=== PATIENT | female | born 1965 | race African-American/Black ===

== ENCOUNTER 2017-01-03 23:22 | Emergency (ER) | payer OTHER ==
[~2017-01-03] VITALS: Ht 172.7 cm; Wt 59.0 kg
[~2017-01-03 23:22] MED LIST: AMBIEN 5 MG TABL5 M1 PO; ANTIVERT25 MG PO; BACLOFEN20 MG PO; CARISOPRODOL 3350 MG PO; DULERA 200 MCG/13 GM; DURAGESIC1 EAC2; METHADONE HCL 110 M1 PO; MIRALAX17 GM; OXYCODONE HCL 55 MG PO; PERCOCET 5-3251 EACH PO; PHENERGAN 25 MG25 M1; SENOKOT-S1 TA1 PO; TOPAMAX50 MG; TOPAMAX50 MG PO; ULTRAM 50MG TAB50 MG PO; VALIUM5 MG PO; VENTOLIN HFA 1818 GM; XANAX 0.5 MG0.5 MG PO; ZOFRAN ODT4 M1
[2017-01-04] MEDS ORDERED: DIFLUCAN150 MG PO (00:47)
== END 2017-01-04 01:06 | disposition home or self-care (01) ==
LOC: ER 23:22
DX: B35.8 Other dermatophytoses (principal); Z88.0 Allergy status to penicillin

== ENCOUNTER 2017-04-23 20:47 | Emergency (ER) | payer OTHER ==
[~2017-04-23] VITALS: Ht 172.7 cm; Wt 62.6 kg
--- NOTE | ~2017-04-23 | EKG ---
[address] [address] [facility] [place] [address] ELECTROCARDIOGRAM REPORT Name: [place] ROMESMITHA [id number] Admission: 04/23/17 Attend Phys: Discharge: 04/24/17 Date of : 67 Report #: [id number] THIS REPORT FOR: //name// [facility] ED Test Date: 2017-04-23 Test Time: 21:34:54 Pat Name: TESFAYE STARK Department: Room: Gender: F Entry Rep: GAIL : 1965 Requested By: John Marshall Order Number: [id number] MD: Jake Pineda Measurements Intervals [place] Rate: 89 P: 74 [place]: 166 QRS: 55 QRSD: 98 T: 81 QT: 371 QTc: 452 Interpretive Statements Sinus rhythm Cannot rule out Brudaga's syndrome Baseline wander in lead(s) V2 No previous ECG available for comparison Electronically Signed On 04-24-2017 9:05:30 WATER VESSEL CAPTAIN by Jake Pineda [email or web address] <ELECTRONICALLY SIGNED> By: Jake Pineda MD, [facility] 04/24/17 0905 D: [id number] Jake Pineda MD, FACC /EPI
[~2017-04-23 20:47] MED LIST changes: +ACETAMINOPHEN-120 ML PO; +CEPHALEXIN 250250 MG; +COMPAZINE5 MG PO; +DIFLUCAN150 MG PO; +FENTANYL PATCH75 MCG TP; +FIORICET 50-321 EACH PO; +FLEXERIL PO; +LORTAB 5 MG/5001 TA1 PO; +NEURONTIN 300300 M1; +NEURONTIN 300300 M1 PO; +NORCO 5-325 TA1 EACH PO; +OXYCONTIN15 MG PO; +PERCOCET 10-321 EACH PO; +PERCOCET 10-651 EACH PO; +PHENERGAN 25 MG25 M1 PO; +PRILOSEC40 MG PO; +TOPAMAX200 MG PO; +ZOFRAN ODT4 MG PO; +ZOFRAN4 MG PO
[2017-04-23 22:46] LABS: HEMATOCRIT 36.8 % (37.0-47.0); HEMOGLOBIN 12.3 gm/dL (12.0-15.0); MCH 31.1 pg (26.0-34.0); MCHC 33.4 g/dL (28.0-37.0); MCV 93.2 fL (80.0-100.0); RBC 3.95 mil/uL (4.20-5.00); RDW 14.1 % (10.5-14.5); WBC 4.8 thou/uL (4.0-11.0)
[2017-04-23 22:54] LABS: ANION GAP 11 mmol/L (7-16); BUN 10 mg/dL (7-18); CALCIUM 8.2 mg/dL (8.5-10.1); CHLORIDE 103 mmol/L (98-107); CO2 21 mmol/L (21-32); CREATININE 1.2 mg/dL (0.6-1.0); GLUCOSE 105 mg/dL (74-106); POTASSIUM 3.9 mmol/L (3.5-5.1); SODIUM 135 mmol/L (136-145)
[2017-04-23 23:03] LABS: TROPONIN-I < 0.04 ng/mL (<0.06)
[2017-04-23 23:04] LABS: URINE BILIRUBIN NEGATIVE (Negative); URINE BLOOD NEGATIVE (Negative); URINE CLARITY CLEAR; URINE COLOR YELLOW; URINE GLUCOSE-RANDOM* NEGATIVE (Negative); URINE KETONES NEGATIVE (Negative); URINE LEUKOCYTES-REFLEX NEGATIVE (Negative); URINE NITRITE-REFLEX NEGATIVE (Negative); URINE PROTEIN (DIPSTICK) TRACE (Negative); URINE UROBILINOGEN 0.2 E.U./dl (0.2-1.0)
[2017-04-24] MEDS ORDERED: PREDNISONE 20 M20 MG PO (00:58)
[2017-04-24] MEDS ORDERED: PROMETHAZINE/C118 ML PO (00:58)
[2017-04-24] MEDS ORDERED: LEVSIN0.125 MG PO (00:58)
[2017-04-24] MEDS ORDERED: VENTOLIN HFA 1818 GM INH (00:58)
[2017-04-24] MEDS ORDERED: MIRALAX17 GM PO (00:58)
[2017-04-24 01:14] VITALS: BP 145/98
[2017-07-09] MEDS ORDERED: CLOTRIMAZOLE 1%15 G1 TOP (23:34)
[2017-07-09] MEDS ORDERED: BACTRIM DS TAB1 EACH PO (23:48)
[2017-07-09] MEDS ORDERED: ACYCLOVIR 400400 MG PO (23:48)
[2017-07-09] MEDS ORDERED: ADDERALL 30 MG30 MG PO (23:49)
[2017-07-09] MEDS ORDERED: ROXICODONE30 M1 PO (23:51)
[2017-07-09] MEDS ORDERED: NARCAN4 MG NS (23:51)
[2017-07-09] MEDS ORDERED: HYDROXYZINE HCL25 M1 PO (23:51)
[2017-07-09] MEDS ORDERED: AMPHETAMINE SAL30 MG PO (23:52)
[2017-08-11] MEDS ORDERED: ADDERALL 30 MG30 MG PO (04:02)
[2017-08-11] MEDS ORDERED: TOPAMAX 100 MG100 MG PO (04:02)
== END 2017-04-24 01:14 | disposition home or self-care (01) ==
LOC: ER 20:47
PROVIDERS: Emergency Medicine; Physician Assistant
DX: N17.9 Acute kidney failure, unspecified (principal); J20.8 Acute bronchitis due to other specified organisms; K59.00 Constipation, unspecified

== ENCOUNTER → 2017-05-12 | Outpatient (CLI) | payer OTHER ==
[~2017-05-12] MED LIST changes: +ACYCLOVIR 400400 MG PO; +ADDERALL 30 MG30 MG PO; +AMPHETAMINE SAL30 MG PO; +BACTRIM DS TAB1 EACH PO; +CLOTRIMAZOLE 1%15 G1 TOP; +HYDROXYZINE HCL25 M1 PO; +LEVSIN0.125 MG PO; +MIRALAX17 GM PO; +NARCAN4 MG NS; +PREDNISONE 20 M20 MG PO; +PROMETHAZINE/C118 ML PO; +ROXICODONE30 M1 PO; +TOPAMAX 100 MG100 MG PO; +VENTOLIN HFA 1818 GM INH
--- NOTE | ~2017-05-12 | 2DMMODE ---
[facility] [address] [place] [address] 2 D/M-MODE ECHOCARDIOGRAM Name: SMITHA ROME Room #: REG [facility]#: [id number] Admission: 05/12/17 Attend Phys: Blaise Guardado Discharge: Date of : 67 Date of Service: 05/12/17 1231 Report #: [id number] THIS REPORT FOR: //name// APPROVED REPORT Study performed: 05/12/2017 10:37:45 EXAM: Comprehensive 2D, Doppler, and color-flow Echocardiogram Patient Location: Out-Patient Status: routine BSA: 1.77 HR: 75 bpm BP: 126/90 mmHg Rhythm: NSR Other Information Study Quality: Good Indications Abnormal ECG 2D Dimensions RVDd: 32.52 mm LVEF(%): 63.00 (>50%) IVSd: 7.77 (7-11mm) LVOT Diam: 20.07 (18-24mm) LVDd: 38.39 mm PWd: 7.99 (7-11mm) LVDs: 25.52 (25-40mm) Aortic Root: 34.09 mm IVC: 18.00 mm Torres's LVEF: 63.00 % Volumes Left Atrial Volume (Systole) Single Plane 4CH: 32.41 mL Aortic Valve AoV Peak Tin.: 1.02 m/s AO Peak Gr.: 4.15 mmHg LVOT Max P.31 mmHg LVOT Max V: 0.76 m/s KARLA Vmax: 2.36 cm2 Mitral Valve E/A Ratio: 1.3 MV Decel. Time: 169.82 ms MV E Max Tin.: 0.84 m/s [facility] [address] [place] [address] 2 D/M-MODE ECHOCARDIOGRAM Name: ROMESMITHA Room #: REG [facility]#: [id number] Admission: 05/12/17 Attend Phys: Blaise Guardado Discharge: Date of : 67 Date of Service: 05/12/17 1231 Report #: [id number] MV A Tin.: 0.67 m/s MV PHT: 49.25 ms IVRT: 69.20 ms Pulmonary Vein P Vein S: 0.36 m/s P Vein A: 0.24 m/s P Vein D: 0.44 m/s P Vein A Dur.: 106.1 msec P Vein S/D Ratio: 0.82 Tricuspid Valve TR Peak Tin.: 2.16 m/s RAP Estimate: 5.00 mmHg TR Peak Gr.: 18.58 mmHg PA Pressure: 24.00 mmHg Left Ventricle The left ventricle is normal size. There is normal left ventricular wall thickness. The left ventricular systolic function is normal. LVEF is 55-60%. Grade II - pseudonormal filling dynamics. Right Ventricle The right ventricle is normal size. The right ventricular systolic function is normal. Atria The left atrium size is normal. The right atrium size is normal. Aortic Valve The aortic valve is normal in structure. Trace aortic regurgitation. There is no aortic valvular stenosis. Mitral Valve The mitral valve is normal in structure. Trace to mild mitral regurgitation. No evidence of mitral valve stenosis. Tricuspid Valve The tricuspid valve is normal in structure. Mild tricuspid regurgitation. Pulmonic Valve Pulmonic valve is not well visualized but appears grossly normal in structure. There is no pulmonic valvular regurgitation. Great Vessels The aortic root is normal in size. IVC is normal in size and collapses >50% with inspiration. [address] [address] 2 D/M-MODE ECHOCARDIOGRAM Name: SMITHA ROME Room #: REG [facility]#: [id number] Admission: 05/12/17 Attend Phys: [facility] Discharge: Date of : 67 Date of Service: 05/12/17 1231 Report #: [id number] Pericardium There is no pericardial effusion. <Conclusion> The left ventricle is normal size. LVEF is 55-60%. The aortic valve is normal in structure. Trace aortic regurgitation. The mitral valve is normal in structure. Trace to mild mitral regurgitation. The tricuspid valve is normal in structure. Mild tricuspid regurgitation. Pulmonic valve is not well visualized but appears grossly normal in structure. There is no pericardial effusion. <ELECTRONICALLY SIGNED> By: Garry Henriquez MD 05/12/17 1231 1231 1231 Garry Henriquez MD /INF
== END ==
LOC: CV 09:36
DX: I08.1 Rheumatic disorders of both mitral and tricuspid valves (principal); R94.31 Abnormal electrocardiogram [ECG] [EKG]

== ENCOUNTER 2018-10-04 12:24 | Emergency (ER) | payer OTHER ==
[~2018-10-04] VITALS: Ht 167.6 cm; Wt 59.0 kg
[2018-10-04 13:40] LABS: ABSOLUTE NEUTROPHILS 1.9 thou/uL (1.4-8.2); BASOPHILS 0.7 % (0.0-2.0); EOSINOPHILS 1.7 % (0.0-3.0); HEMATOCRIT 37.9 % (37.0-47.0); HEMOGLOBIN 12.5 gm/dL (12.0-15.0); LYMPHOCYTES 44.5 % (24.0-44.0); MCH 30.2 pg (26.0-34.0); MCHC 32.8 g/dL (28.0-37.0); MONOCYTES 6.5 % (1.0-8.0); PLATELET COUNT 201 thou/uL (150-400); POLYS 46.6 % (36.0-66.0); RBC 4.12 mil/uL (4.20-5.00); RDW 15.6 % (10.5-14.5); WBC 4.1 thou/uL (4.0-11.0)
[2018-10-04 13:47] LABS: CREATININE 1.3 mg/dL (0.6-1.0); POTASSIUM 3.5 mmol/L (3.5-5.1)
[2018-10-04 14:17] LABS: URINE BLOOD NEGATIVE (Negative); URINE CLARITY CLEAR; URINE COLOR YELLOW; URINE GLUCOSE-RANDOM* NEGATIVE (Negative); URINE KETONES TRACE (Negative); URINE LEUKOCYTES NEGATIVE (Negative); URINE NITRITE NEGATIVE (Negative); URINE PROTEIN (DIPSTICK) TRACE (Negative); URINE SPECIFIC GRAVITY >= 1.030 (1.005-1.035); URINE UROBILINOGEN 0.2 E.U./dl (0.2-1.0)
[2018-10-04 14:19] LABS: ICTOTEST (BILI CONFIRMATORY) Negative (Negative); URINE BILIRUBIN NEGATIVE (Negative)
[2018-10-04 15:04] VITALS: BP 115/80
== END 2018-10-04 14:55 | disposition home or self-care (01) ==
LOC: ER 12:24
PROVIDERS: Physician Assistant
DX: L81.8 Other specified disorders of pigmentation (principal); F90.9 Attention-deficit hyperactivity disorder, unspecified type; Z88.5 Allergy status to narcotic agent; Z88.0 Allergy status to penicillin

== ENCOUNTER 2018-11-24 17:11 | Emergency (ER) | payer OTHER ==
[~2018-11-24] VITALS: Ht 172.7 cm; Wt 62.1 kg
[2018-11-24 19:10] LABS: URINE BILIRUBIN NEGATIVE (Negative); URINE BLOOD NEGATIVE (Negative); URINE CLARITY CLEAR; URINE COLOR YELLOW; URINE GLUCOSE-RANDOM* NEGATIVE (Negative); URINE KETONES NEGATIVE (Negative); URINE LEUKOCYTES-REFLEX NEGATIVE (Negative); URINE NITRITE-REFLEX NEGATIVE (Negative); URINE PROTEIN (DIPSTICK) NEGATIVE (Negative); URINE SPECIFIC GRAVITY 1.025 (1.005-1.035); URINE UROBILINOGEN 0.2 E.U./dl (0.2-1.0)
[2018-11-24 19:18] LABS: AMP/METHAMP POSITIVE (Negative); BARBITURATES Negative (Negative); BENZODIAZEPINES Negative (Negative); COCAINE Negative (Negative); METHADONE Negative (Negative); OPIATES Negative (Negative); PCP Negative (Negative)
[2018-11-24 20:05] LABS: HEMATOCRIT 39.7 % (37.0-47.0); HEMOGLOBIN 13.1 gm/dL (12.0-15.0); MCV 93.9 fL (80.0-100.0); RBC 4.23 mil/uL (4.20-5.00); RDW 16.2 % (10.5-14.5)
[2018-11-24 20:39] LABS: CALCIUM 9.1 mg/dL (8.5-10.1); CREATININE 1.4 mg/dL (0.6-1.0); POTASSIUM 4.2 mmol/L (3.5-5.1)
[2018-11-24 20:43] LABS: ALBUMIN 3.2 g/dL (3.4-5.0); TOTAL BILIRUBIN 0.4 mg/dL (<0.1-1.0); TOTAL PROTEIN 6.9 g/dL (6.4-8.2)
[2018-11-24 21:52] VITALS: BP 135/75
== END 2018-11-24 21:55 | disposition home or self-care (01) ==
LOC: ER 17:11
PROVIDERS: Emergency Medicine
DX: F42.4 Excoriation (skin-picking) disorder (principal); T43.625A Adverse effect of amphetamines, initial encounter; F90.9 Attention-deficit hyperactivity disorder, unspecified type; Z88.0 Allergy status to penicillin; Z88.5 Allergy status to narcotic agent; Y92.89 Other specified places as the place of occurrence of the external cause

== ENCOUNTER → 2018-12-07 | Outpatient (CLI) | payer OTHER ==
[~2018-12-07] MED LIST changes: +DULERA 200 MCG/13 GM INH; +KEFLEX500 M1 PO; +PROAIR RESPICL90 MCG INH; +TOPAMAX25 M1 PO; +ZANAFLEX4 MG PO; +ZOFRAN 4 MG ORAL4 MG PO
[2018-12-07 08:14] VITALS: BP 111/81
== END | disposition home or self-care (01) ==
LOC: SPEC 07:24
DX: T82.898A Other specified complication of vascular prosthetic devices, implants and grafts, initial encounter (principal); D70.8 Other neutropenia; G43.909 Migraine, unspecified, not intractable, without status migrainosus; Z98.890 Other specified postprocedural states; Z85.828 Personal history of other malignant neoplasm of skin; Z88.0 Allergy status to penicillin; Z88.8 Allergy status to other drugs, medicaments and biological substances; Z79.899 Other long term (current) drug therapy; Y83.8 Other surgical procedures as the cause of abnormal reaction of the patient, or of later complication, without mention of misadventure at the time of the procedure; Y92.89 Other specified places as the place of occurrence of the external cause

== ENCOUNTER 2019-01-26 17:06 | Emergency (ER) | payer OTHER ==
[~2019-01-26] VITALS: Ht 172.7 cm; Wt 66.2 kg
[~2019-01-26 17:06] MED LIST changes: -KEFLEX500 M1 PO
[2019-01-26 17:53] LABS: ABSOLUTE NEUTROPHILS 5.1 thou/uL (1.4-8.2); BASOPHILS 0.8 % (0.0-2.0); HEMATOCRIT 39.7 % (37.0-47.0); HEMOGLOBIN 12.8 gm/dL (12.0-15.0); LYMPHOCYTES 31.1 % (24.0-44.0); MCH 30.2 pg (26.0-34.0); MCHC 32.2 g/dL (28.0-37.0); MCV 93.8 fL (80.0-100.0); MONOCYTES 4.5 % (1.0-8.0); PLATELET COUNT 232 thou/uL (150-400); POLYS 61.6 % (36.0-66.0); RBC 4.23 mil/uL (4.20-5.00); RDW 16.5 % (10.5-14.5); WBC 8.3 thou/uL (4.0-11.0)
[2019-01-26 18:03] LABS: ANION GAP 9 mmol/L (7-16); BUN 13 mg/dL (7-18); CHLORIDE 108 mmol/L (98-107); CO2 24 mmol/L (21-32); GLUCOSE 94 mg/dL (74-106); POTASSIUM 3.5 mmol/L (3.5-5.1); SODIUM 141 mmol/L (136-145)
[2019-01-26 18:20] LABS: ALBUMIN 3.9 g/dL (3.4-5.0); DIRECT BILIRUBIN < 0.1 mg/dL (<0.1-0.3); SGOT 18 U/L (15-37); SGPT 17 U/L (30-65); TOTAL BILIRUBIN 0.3 mg/dL (<0.1-1.0); TOTAL PROTEIN 7.9 g/dL (6.4-8.2)
[2019-01-26] MEDS ORDERED: KEFLEX500 M1 PO (19:11)
[2019-01-26 20:39] VITALS: BP 120/86
== END 2019-01-26 20:40 | disposition home or self-care (01) ==
LOC: ER 17:06
PROVIDERS: Emergency Medicine
DX: F42.4 Excoriation (skin-picking) disorder (principal); F90.9 Attention-deficit hyperactivity disorder, unspecified type; Z88.5 Allergy status to narcotic agent; Z88.0 Allergy status to penicillin

== ENCOUNTER 2019-02-26 17:14 | Emergency (ER) | payer OTHER ==
[~2019-02-26] VITALS: Ht 172.7 cm; Wt 68.0 kg
[~2019-02-26 17:14] MED LIST changes: +KEFLEX500 M1 PO
[2019-02-26 17:46] LABS: CALCIUM 9.5 mg/dL (8.5-10.1); CREATININE 1.2 mg/dL (0.6-1.0); POTASSIUM 3.5 mmol/L (3.5-5.1)
[2019-02-26 17:47] LABS: HEMATOCRIT 38.2 % (37.0-47.0); HEMOGLOBIN 12.5 gm/dL (12.0-15.0); MCH 30.7 pg (26.0-34.0); MCHC 32.6 g/dL (28.0-37.0); RBC 4.06 mil/uL (4.20-5.00); WBC 6.3 thou/uL (4.0-11.0)
[2019-02-26 17:52] LABS: TOTAL BILIRUBIN 0.5 mg/dL (<0.1-1.0); TOTAL PROTEIN 7.7 g/dL (6.4-8.2)
[2019-02-26 18:23] LABS: ABSOLUTE NEUTROPHILS 1.7 thou/uL (1.4-8.2); ATYPICAL LYMPHS 1 %
[2019-02-26 18:24] LABS: LARGE PLATELETS RARE; PLATELET COUNT 219 thou/uL (150-400)
[2019-02-26] MEDS ORDERED: PERCOCET 10-321 EAC1 PO (19:25)
[2019-02-26 19:56] VITALS: BP 110/72
== END 2019-02-26 19:53 | disposition home or self-care (01) ==
LOC: ER 17:14
PROVIDERS: Emergency Medicine
DX: R07.9 Chest pain, unspecified (principal); F90.9 Attention-deficit hyperactivity disorder, unspecified type; Z88.0 Allergy status to penicillin; Z88.6 Allergy status to analgesic agent

== ENCOUNTER 2019-03-04 12:27 | Emergency (ER) | payer OTHER ==
[~2019-03-04] VITALS: Ht 172.7 cm; Wt 65.8 kg
[~2019-03-04 12:27] MED LIST changes: +PERCOCET 10-321 EAC1 PO
[2019-03-04 13:14] LABS: URINE BILIRUBIN NEGATIVE (Negative); URINE BLOOD NEGATIVE (Negative); URINE CLARITY CLEAR; URINE COLOR YELLOW; URINE GLUCOSE-RANDOM* NEGATIVE (Negative); URINE KETONES NEGATIVE (Negative); URINE LEUKOCYTES-REFLEX TRACE (Negative); URINE NITRITE-REFLEX NEGATIVE (Negative); URINE PROTEIN (DIPSTICK) NEGATIVE (Negative)
[2019-03-04 13:20] LABS: ABSOLUTE NEUTROPHILS 10.3 thou/uL (1.4-8.2); BASOPHILS 0.4 % (0.0-2.0); HEMATOCRIT 34.5 % (37.0-47.0); HEMOGLOBIN 11.1 gm/dL (12.0-15.0); LYMPHOCYTES 20.1 % (24.0-44.0); MCH 30.3 pg (26.0-34.0); MCHC 32.3 g/dL (28.0-37.0); MONOCYTES 2.8 % (1.0-8.0); PLATELET COUNT 198 thou/uL (150-400); POLYS 76.7 % (36.0-66.0); RBC 3.68 mil/uL (4.20-5.00); RDW 15.8 % (10.5-14.5); WBC 13.5 thou/uL (4.0-11.0)
[2019-03-04 13:26] LABS: CALCIUM 9.3 mg/dL (8.5-10.1); CREATININE 1.2 mg/dL (0.6-1.0); MAGNESIUM 2.2 mg/dL (1.8-2.4); POTASSIUM 3.5 mmol/L (3.5-5.1)
[2019-03-04 13:43] LABS: AMP/METHAMP POSITIVE (Negative); BARBITURATES Negative (Negative); BENZODIAZEPINES Negative (Negative); COCAINE Negative (Negative); METHADONE Negative (Negative); OPIATES Negative (Negative); PCP Negative (Negative)
[2019-03-04 14:55] VITALS: BP 120/88
== END 2019-03-04 14:55 | disposition home or self-care (01) ==
LOC: ER 12:27
PROVIDERS: Emergency Medicine
DX: S00.81XA Abrasion of other part of head, initial encounter (principal); H53.8 Other visual disturbances; Z88.5 Allergy status to narcotic agent; Z88.0 Allergy status to penicillin; Z79.899 Other long term (current) drug therapy; X58.XXXA Exposure to other specified factors, initial encounter; Y93.89 Activity, other specified; Y92.89 Other specified places as the place of occurrence of the external cause; Y99.9 Unspecified external cause status

== ENCOUNTER 2019-03-10 08:51 | Inpatient (IN) | payer OTHER ==
[2019-03-10] VITALS (12 sets, daily range): BP systolic 93–147; BP diastolic 53–88
[~2019-03-10] VITALS: Ht 172.7 cm; Wt 65.6 kg
[2019-03-10 09:21] LABS: BASOPHILS 1.4 % (0.0-2.0); EOSINOPHILS 1.9 % (0.0-3.0); HEMOGLOBIN 12.2 gm/dL (12.0-15.0); LYMPHOCYTES 54.4 % (24.0-44.0); MCH 30.4 pg (26.0-34.0); MCHC 32.1 g/dL (28.0-37.0); MCV 94.7 fL (80.0-100.0); MONOCYTES 5.4 % (1.0-8.0); PLATELET COUNT 210 thou/uL (150-400); POLYS 36.9 % (36.0-66.0); RBC 4.01 mil/uL (4.20-5.00); RDW 16.2 % (10.5-14.5)
[2019-03-10 09:24] LABS: ANION GAP 14 mmol/L (7-16); BUN 15 mg/dL (7-18); CALCIUM 8.9 mg/dL (8.5-10.1); CHLORIDE 110 mmol/L (98-107); CO2 20 mmol/L (21-32); CREATININE 1.4 mg/dL (0.6-1.0); GLUCOSE 109 mg/dL (74-106); SODIUM 144 mmol/L (136-145)
[2019-03-10 09:33] LABS: TROPONIN-I <0.06 ng/mL (<0.06)
[2019-03-10 11:47] LABS: URINE BILIRUBIN NEGATIVE (Negative); URINE BLOOD NEGATIVE (Negative); URINE CLARITY CLEAR; URINE COLOR YELLOW; URINE GLUCOSE-RANDOM* NEGATIVE (Negative); URINE KETONES NEGATIVE (Negative); URINE NITRITE-REFLEX NEGATIVE (Negative); URINE PROTEIN (DIPSTICK) NEGATIVE (Negative); URINE SPECIFIC GRAVITY 1.025 (1.005-1.035); URINE UROBILINOGEN 0.2 E.U./dl (0.2-1.0)
[2019-03-10 11:53] LABS: URINE LEUKOCYTES-REFLEX 1+ (Negative)
[2019-03-10 12:19] LABS: SQUAMOUS 0-3 Few /LPF (0-3)
[2019-03-10 12:20] LABS: AMORPHOUS URATES Many /LPF (None Seen); BACTERIA-REFLEX None Seen /HPF (None Seen); CASTS None Seen /LPF (None Seen); URINE RBC None Seen /HPF (0-2); URINE WBC-REFLEX 6-15 Few /HPF (0-5)
--- NOTE | 2019-03-10 12:22 | EKG ---
[address] [address] ELECTROCARDIOGRAM REPORT Name: MISMITHA Room #: REG [facility]#: [id number] Admission: 03/10/19 Attend Phys: Discharge: Date of : 67 Report #: [id number] THIS REPORT FOR: //name// [facility] ED Test Date: 2019-03-10 Test Time: 09:05:11 Pat Name: SMITHA STARK Department: Room: Gender: F Record Retrieval Specialist: YURY : 1965 Requested By: Trent Ladd Order Number: [id number] MD: Blaise Guardado Measurements Intervals [place] Rate: 90 P: 66 NV: 159 QRS: 50 QRSD: 109 T: 58 QT: 362 QTc: 443 Interpretive Statements Sinus rhythm Probable left atrial enlargement Compared to ECG 08/24/2013 06:12:46 Myocardial infarct finding no longer present T-wave abnormality no longer present Electronically Signed On 03-10-2019 12:22:22 CAR CLEANER by Blaise Guardado [email or web address] <ELECTRONICALLY SIGNED> By: Blaise Guardado MD 03/10/19 1222 0905 Blaise Guardado MD /ALESSIO
[2019-03-10 13:54] LABS: AMP/METHAMP Negative (Negative); BARBITURATES Negative (Negative); BENZODIAZEPINES Negative (Negative); COCAINE Negative (Negative); METHADONE Negative (Negative); OPIATES Negative (Negative); PCP Negative (Negative)
[2019-03-10 15:18] LABS: ALBUMIN 3.7 g/dL (3.4-5.0); TOTAL PROTEIN 7.2 g/dL (6.4-8.2)
[2019-03-10 15:23] LABS: TSH 3.898 uIU/mL (0.358-3.740)
--- NOTE | 2019-03-10 18:26 | NUR ---
PT admitted from ER for SOB , swelling of upper lip and high lactic acid, pt is A&OX3, new order received, pt's upper lip swelling and pt's lactic acid have improved, pt has medication for back pain, pt denies SOB at this time, pt is eating her dinner now.
--- NOTE | 2019-03-10 19:44 | NUR ---
pt started breathing fast ( 30-35 times/min) and pt was anxiety about 10min, check pt's VS , BS and o2sat are normal , PT's upper lip swelling is same, RN has called , new order O2SAT monitor continuing, PT has void 500ml urine by this time.RN has report to next shift to keep eye on pt.
--- NOTE | 2019-03-10 20:18 | NUR ---
CODE STROKE CALLED, SHE SAYS SPASMS, HER SPEECH IS SLURRED. SHE IS UNABLE TO STICK OUT HER TONGUE AND UNABLE TO SMILE. UNABLE TO TURN HER HEAD. VERY HARD TIME FOLLOWING DIRECTIONS, SHE DIDNOT RECOGNIZE HER SISTER. HER VITALS ARE NORMAL: 147/88, 82, 100 % ON R0OM AIR
--- NOTE | 2019-03-10 20:51 | NUR ---
ALEXANDER KIDD CALLED AT [address] AT 2029, BACK FROM CT AT 2044. DR. GARCIA HAPPENED TO SE HER JUST BEFORE GOING TO CT AND DURING THE EVENT. SHE IS NOW ABLE TO MOVE HER HEAD A SMALL BIT BETINA TO THE MIDLINE. SHEIS SPEAKING MORE CLEARLY.
[2019-03-10 21:05] LABS: ABSOLUTE NEUTROPHILS 3.6 thou/uL (1.4-8.2); BASOPHILS 0.4 % (0.0-2.0); EOSINOPHILS 0.6 % (0.0-3.0); HEMATOCRIT 33.2 % (37.0-47.0); LYMPHOCYTES 22.5 % (24.0-44.0); MCH 31.1 pg (26.0-34.0); MCV 94.3 fL (80.0-100.0); PLATELET COUNT 194 thou/uL (150-400); POLYS 74.5 % (36.0-66.0); RBC 3.52 mil/uL (4.20-5.00); RDW 16.4 % (10.5-14.5); WBC 4.8 thou/uL (4.0-11.0)
[2019-03-10 21:09] LABS: ANION GAP 14 mmol/L (7-16); BUN 11 mg/dL (7-18); CALCIUM 8.7 mg/dL (8.5-10.1); CHLORIDE 112 mmol/L (98-107); CO2 18 mmol/L (21-32); CREATININE 1.4 mg/dL (0.6-1.0); GLUCOSE 102 mg/dL (74-106); POTASSIUM 4.3 mmol/L (3.5-5.1); SODIUM 144 mmol/L (136-145)
[2019-03-10 21:17] LABS: TROPONIN-I <0.06 ng/mL (<0.06)
[2019-03-10 21:24] LABS: APTT 28.4 Seconds (24.5-32.8); PROTIME 10.7 Seconds (9.3-11.4)
[2019-03-10 22:01] LABS: BE(vivo) -7.5 mmol/L (-2 to +3); HCO3 17.3 mmol/L (22.0-26.0); PCO2 32.7 mmHg (35.0-45.0); PO2 100.8 mmHg (80.0-100.0); pH 7.341 (7.360-7.450); sO2 97.4 % (92.0-98.0)
--- NOTE | 2019-03-10 22:02 | NUR ---
spoke with provider water restoration technician throughout the evening. recieved an order to hold off on calling the neuro consult until narcan given and abg completed. narcan given: no difference with assessment from the time before to after. reassessed her NIH and obtained a score of 16. she is able to cooperate a bit better with the scoring and that has made the difference with the scoring. abg completed lactate is trending down.ABG is WNL's
--- NOTE | 2019-03-11 03:10 | NUR ---
CONTINUES TO HAVE LEFT ARM WEAKNESS. SHE IS ABLE TO SPEAK MORE CLEARLY NOW AND IS ABLE TO MOVE SIDE TO SIDE AND PICK LEGS UP OFF THE BED. [facility] IS STAYING AT A 5
[2019-03-11 04:20] VITALS: BP 103/62
--- NOTE | 2019-03-11 04:57 | NUR ---
PTCOMPLAINS OF PAIN TO HER NECK AREA.I OFFERED, THE IV FENTANYL and explained that her doctor would like her to be npo at this time. she is uncomfortable with taking iv narcotics. she stated that she has a history of drug abuse and does not want to relapse. iv dose that was taken from xis was wasted with another nurse.
[2019-03-11 07:17] VITALS: BP 113/79
--- NOTE | 2019-03-11 07:58 | EKG ---
[address] [address] ELECTROCARDIOGRAM REPORT Name: SMITHA STARK Room #: 354-P ADM IN M.R.#: [id number] Admission: 03/10/19 Attend Phys: Wilman Pena MD Discharge: Date of : 67 Report #: [id number] THIS REPORT FOR: //name// [facility] Test Date: 2019-03-10 Test Time: 18:49:26 Pat Name: SMITHA STARK Department: Room: 354 Gender: F Filter Press Tender: Lele URBANO : 1965 Requested By: Wilman Pena Order Number: [id number] MD: Jake Pineda Measurements Intervals [place] Rate: 86 P: 60 W[place]: 162 QRS: 53 QRSD: 122 T: 54 QT: 380 QTc: 455 Interpretive Statements Sinus rhythm Poor septal R-wave progression Compared to ECG 03/10/2019 09:05:11 No significant change was found Electronically Signed On 03-11-2019 7:58:13 STONE SETTER APPRENTICE by Jake Pineda [email or web address] <ELECTRONICALLY SIGNED> By: Jake Pineda MD, [facility] 03/11/19 0758 1849 1849 Jake Pineda MD, [facility] /EPI
--- NOTE | 2019-03-11 09:16 | 2DMMODE ---
[facility] [address] [place] [address] 2 D/M-MODE ECHOCARDIOGRAM Name: JG STARKANITA Room #: 354-P ADM IN M.R.#: [id number] Admission: 03/10/19 Attend Phys: Wilman Pena, Discharge: Date of : 67 Report #: [id number] THIS REPORT FOR: //name// APPROVED REPORT Study performed: 03/11/2019 08:16:22 EXAM: Comprehensive 2D, Doppler, and color-flow Echocardiogram Patient Location: Bedside Room #: 354 Status: routine BSA: 1.81 HR: 64 bpm BP: 113/79 mmHg Rhythm: NSR Other Information Study Quality: Good Indications Possible stroke. Echo Enhancing Agent Indication: Rule out Shunt Agent(s) / Amount(s) Used: Definity 6 cc 2D Dimensions RVDd: 31.71 mm IVSd: 8.82 (7-11mm) LVOT Diam: 21.53 (18-24mm) LVDd: 38.42 mm PWd: 7.89 (7-11mm) LVDs: 28.14 (25-40mm) Aortic Root: 32.79 mm Volumes Left Atrial Volume (Systole) Single Plane 4CH: 23.03 mL Single Plane 2CH: 32.41 mL LA ESV Index: 17.00 mL/m2 Aortic Valve AoV Peak Tin.: 0.94 m/s AO Peak Gr.: 3.53 mmHg LVOT Max P.59 mmHg LVOT Max V: 0.63 m/s KARLA Vmax: 2.44 cm2 [facility] [address] [place] [address] 2 D/M-MODE ECHOCARDIOGRAM Name: SMITHA STARK Room #: 354-P [facility]#: [id number] Admission: 03/10/19 Attend Phys: Wilman Pena, Discharge: Date of : 67 Report #: [id number] Mitral Valve E/A Ratio: 2.7 MV Decel. Time: 240.77 ms MV E Max Tin.: 0.76 m/s MV A Tin.: 0.28 m/s MV PHT: 69.82 ms IVRT: 69.20 ms Pulmonary Valve PV Peak Tin.: 0.74 m/s PV Peak Gr.: 2.20 mmHg Pulmonary Vein P Vein S: 0.44 m/s P Vein A: 0.20 m/s P Vein D: 0.44 m/s P Vein A Dur.: 83.0 msec P Vein S/D Ratio: 1.00 Tricuspid Valve TR Peak Tin.: 2.04 m/s RAP Estimate: 5.00 mmHg TR Peak Gr.: 17.00 mmHg PA Pressure: 27.00 mmHg Left Ventricle The left ventricle is normal size. There is normal LV segmental wall motion. There is normal left ventricular wall thickness. Left ventricular systolic function is normal. LVEF is 55-60%. The left ventricular diastolic function is normal. Right Ventricle The right ventricle is normal size. The right ventricular systolic function is normal. Atria The left atrium size is normal. No shunting noted by contrast bubble injection. The right atrium size is normal. Aortic Valve The aortic valve is normal in structure. Trace aortic regurgitation. There is no aortic valvular stenosis. Mitral Valve The mitral valve is normal in structure. Mild mitral regurgitation. Tricuspid Valve The tricuspid valve is normal in structure. Mild to moderate tricuspid regurgitation. Estimated PAP is 25-30mmHg. [facility] [address] [place] [address] 2 D/M-MODE ECHOCARDIOGRAM Name: SMITHA STARK Room #: 354-P [facility] IN M.R.#: [id number] Admission: 03/10/19 Attend Phys: Wilman Pena, Discharge: Date of : 67 Report #: [id number] Pulmonic Valve Pulmonic valve is not well visualized. Great Vessels The aortic root is normal in size. Ascending aorta is not well visualized. IVC is dilated and collapses <50% with inspiration. Pericardium There is no pericardial effusion. <Conclusion> The left ventricle is normal size. LVEF is 55-60%. The aortic valve is normal in structure. Trace aortic regurgitation. The mitral valve is normal in structure. Mild mitral regurgitation. The tricuspid valve is normal in structure. Mild to moderate tricuspid regurgitation. Estimated PAP is 25-30mmHg. There is no pericardial effusion. <ELECTRONICALLY SIGNED> By: Garry Henriquez MD 03/11/19914 4 4 Garry Henriquez MD /INF
[2019-03-11 09:39] LABS: HEMATOCRIT 35.3 % (37.0-47.0); HEMOGLOBIN 11.2 gm/dL (12.0-15.0); MCH 30.2 pg (26.0-34.0); MCHC 31.9 g/dL (28.0-37.0); MCV 94.7 fL (80.0-100.0); RBC 3.72 mil/uL (4.20-5.00); RDW 16.6 % (10.5-14.5); WBC 5.5 thou/uL (4.0-11.0)
[2019-03-11 09:54] LABS: ALBUMIN 3.2 g/dL (3.4-5.0); CALCIUM 8.6 mg/dL (8.5-10.1); CREATININE 1.1 mg/dL (0.6-1.0); MAGNESIUM 1.9 mg/dL (1.8-2.4); TOTAL BILIRUBIN 0.3 mg/dL (<0.1-1.0); TOTAL PROTEIN 6.6 g/dL (6.4-8.2)
[2019-03-11 11:31] VITALS: BP 122/80
[2019-03-11 15:10] VITALS: BP 108/54
--- NOTE | 2019-03-11 15:19 | NUR ---
ASSESSMENT: CM REVIEWED CHART AND MET WITH PATIENT AT THE BEDSIDE. PT REPORTS THAT SHE LIVES IN AN APT ALONE. PT REPORTS THAT SHE IS INDEPENDENT WITH ADLS AND AMBULATION. PT DENIES HAVING DME OR THE NEED FOR IT. PT REPORTS SHE HAS NO SETPS TO ENTER HER APT. PT STATES SHE HAS HAD HH IN THE PAST BUT UNSURE THE AGENCY. PT REPORTS SHE HAS NOT BEEN TO A SNF BEFORE. CM DISCUSSED ROLE. PT DOES NOT ANTICIPATE HAVING ANY NEEDS AT DISCHARGE.
--- NOTE | 2019-03-11 19:42 | NUR ---
RECEIVED PT'S CARE AROUND 0730; PT. ON BED; ALERT TO PLACE; SITUATION; MONTH; C/O HEADACHE; NPO; REFUSED IV FENTANYL MEDICATION; SCHEDULE TO HAVE MRI & LUMBAR PUNCTURE; CONCENT SIGNED; HOSPITALIST & NEUROLOGIST ROUNDING AROUND 0830; PER RI DUE TO PT. HAD BLOOD THINNER WITHIN 24H NOT ABLE TO HAVE LP; PHYSICIANS NOTIFIED; NO NEW ORDER; DIET RESUME; AM MEDICATIONS GIVEN; PT. REQUESTED PRN PAIN MEDICATION AROUND 1200; MEDICATION GIVEN; RE-ASSESSMENT PT. RESTING; PT/OT/ST WORKED DURING THE AFTERNOON; CHECK CHARTING; PT. ST. HAVING HX OF DECREASE WBC & TAKES MEDICATION M/W/F ON REGULAR BASIS; [facility] CONTACTED GAS PLANT REPAIRER & FAXED PT'S LAST VISIT HISTORY; PHYSICIAN NOTIFIED; ORDERS RECEIVED; ENT PHYSICIAN REQUESTED ENT CAR AROUND 1800; PROVIDE IT; SCOPE CLEANED & NOTIFIED TO STEEL RULE DIE MAKER APPRENTICE; ASSESSMENT CHARGED; FOLLOWING POC; PASSED ON REPORT;
[2019-03-11 20:00] VITALS: BP 112/68
[2019-03-12 00:03] VITALS: BP 119/68
--- NOTE | 2019-03-12 01:20 | NUR ---
PT SITTING UP IN CHAIR, TALKING WITH VISITOR, LAUGHING AND JOKING. IVF INTACT. CHAIR ALARM ON. PT ASKS FOR ASSISTANCE WITH ABMULATION. X LARGE BM X 1 HAD PRN MIRALAX. PT REPORTS SHE THINKS CREAM FOR RASH MAKES HER ITCH, DRESSING INTACT. TELE ST AND SR. PT C/O HEADACHE FACE DISCOMFORT PRN PROVIDED WITH RELIEF. PT STATED SHE WANTS TO BE DCD TO GO HOME WHERE SHE CAN EAT HER OWN MEALS. NIH COMPLETED. NOTED POOR PERIPHERAL VISION AND PT NOT ABLE TO DRAG HEEL DOWN RAMIRES OR RAISE LEGS STRONG, BUT WHEN PT AMBULATED TO [facility] SHE WAS CRAWLING OUT OF CHAIR AND STEADY STRONG UPRIGHT POSITION.
--- NOTE | 2019-03-12 04:28 | NUR ---
THIS AM PT NOTED WHITE FLAT BLISTERS ON L SIDE OF UPPER LIP. PT STATED THIS IS WHERE HERE LIP WAS SWOLLEN YESTERDAY AND ON ADMISSION.
[2019-03-12 04:30] VITALS: BP 105/71
[2019-03-12 05:10] LABS: HEMATOCRIT 36.2 % (37.0-47.0); HEMOGLOBIN 11.6 gm/dL (12.0-15.0); MCH 30.9 pg (26.0-34.0); MCV 96.6 fL (80.0-100.0); RBC 3.74 mil/uL (4.20-5.00); RDW 16.3 % (10.5-14.5); WBC 4.9 thou/uL (4.0-11.0)
[2019-03-12 05:28] LABS: CALCIUM 8.8 mg/dL (8.5-10.1); MAGNESIUM 1.9 mg/dL (1.8-2.4); POTASSIUM 3.9 mmol/L (3.5-5.1)
[2019-03-12 07:33] VITALS: BP 116/70
--- NOTE | 2019-03-12 09:01 | NUR ---
ASSUMED CARE OF PT APPROX 0715, A&0X4, SBA, LOWER BACK PAIN, HEADACHE. HAS LEFT SIDE PORT, WAS REMOVED A MONTH AGO D/T INF. HAS SCARS, SEE SEPARATE INTERVETIONS FOR ASSESSMENTS. PER REPORT PT HAS SKIN ISSUES AND SWOLLEN LIPS, PT STATES SHE FEELS THE BLISTERS HAVE BUSTED IN HER LIPS. EATING BFAST, GOOD APPETITE, USES CALL LIGHT FOR NEEDS. PT APPEARS IN GOOD SPIRITS, ENCOURAGED PT TO USE CALL LIGHT FOR ANY NEEEDS
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
[2019-03-12 11:25] VITALS: BP 110/71
[2019-03-12 15:53] VITALS: BP 111/78
[2019-03-12 19:25] VITALS: BP 120/75
--- NOTE | 2019-03-13 00:10 | NUR ---
PT SITTING UP IN CHAIR UPON ARRIVAL TO SHIFT. PT STEADY WITH TRANSFER TO BED AND BSC. IVF INTACT. BANDAIDS OVER SKIN RASH INTACT. NIH ASSESSMENTS, PT REPORTS POOR PERIPHERAL VISION HX AND USUALLY WEARS GLASSES. PT DENIES PAIN. PT TALKING ON PHONE AND WATCHING TV, LAUGHING.
--- NOTE | 2019-03-13 00:33 | NUR ---
CALLED CUSTOMER ORDERS CLERK, PER REPORT LUMBAR PUNCTURE NO LONGER PLANNED FOR THURSDAY. RECEIVED ORDER TO RESTART LOVENOX.
[2019-03-13 03:14] VITALS: BP 128/92
[2019-03-13 07:43] VITALS: BP 112/89
[2019-03-13 11:21] VITALS: BP 127/78
[2019-03-13 15:44] VITALS: BP 125/81
--- NOTE | 2019-03-13 15:58 | NUR ---
pt is A&OX3, PT 's upper Lip swelling has improved, pt's vs are stable, pt denies SOB today, pt's wound care have done, pt will have swallowing study tomorrow, pt has pain medication about 1520pm, pt is relaxing now.
[2019-03-13 19:50] VITALS: BP 121/85
[2019-03-14 04:47] VITALS: BP 131/84
--- NOTE | 2019-03-14 05:12 | NUR ---
Pt. has been awake all night watching TV stating she ust can't sleep. Will try to get some sleep later. Tolerating room air well.Up with assist to bathroom using walker. She is unsteady on her feet. Bed alarm on,she calls appropriately for assistance. Making progress towards care plan goals.
[2019-03-14 07:13] VITALS: BP 135/90
[2019-03-14 11:29] VITALS: BP 127/78
--- NOTE | 2019-03-14 14:01 | NUR ---
SW reviewed chart and spoke with nursing and attending physician. Pt is slowly progressing towards goals for discharge. Psych consulted today to evaluate pt. Pt may need post-acute placement when ready for discharge. SW is following to assist as needed with discharge planning.
[2019-03-14 15:55] VITALS: BP 118/83
--- NOTE | 2019-03-14 19:37 | NUR ---
pt is A&OX3, PT's vs are stable, pt is working with PT/OT today, pt's video swallow study results show no evidence of laryngeal penetration or frark aspiration, pt denies sob today.
[2019-03-14 19:54] VITALS: BP 120/85
[2019-03-15 04:35] VITALS: BP 100/69
--- NOTE | 2019-03-15 04:58 | NUR ---
ASSUMED CARE OF PATIENT AT 1900. HEART RATE ELEVATED WHEN UP TO BATHROOM, AND VARIOUS OTHER TIMES. ORDER OBTAINED FOR EKG. NO ABNORMAL RESULTS. REQUESTED MEDICINE FOR SLEEP. SEREQUAL GIVEN ORDERED. PATIENT STATES SHE DOESN'T LIKE THE WAY IT MAKES HER FEEL. WORKING TOWARDS POC GOALS.
[2019-03-15 07:12] VITALS: BP 105/73
--- NOTE | 2019-03-15 09:01 | EKG ---
[address] [address] ELECTROCARDIOGRAM REPORT Name: SMITHA STARK Room #: 354-P ADM IN M.R.#: [id number] Admission: 03/10/19 Attend Phys: Wilman Pena MD Discharge: Date of : 67 Report #: [id number] THIS REPORT FOR: //name// [facility] Test Date: 2019-03-14 Test Time: 21:23:22 Pat Name: SMITHA STARK Department: Room: 354 Gender: F Cath Lab Technologist: Lele URBANO : 1965 Requested By: Jacqueline Britton Order Number: [id number] MD: Jake Pineda Measurements Intervals [place] Rate: 96 P: 67 [place]: 164 QRS: 46 QRSD: 83 T: 54 QT: 334 QTc: 422 Interpretive Statements Sinus rhythm Anteroseptal infarct, age indeterminate Compared to ECG 03/10/2019 18:49:26 No significant change was found Electronically Signed On 03-15-2019 9:01:03 AIR CONDITIONING MECHANIC by Jake Pineda [email or web address] <ELECTRONICALLY SIGNED> By: Jake Pineda MD, [facility] 03/15/1901 22 22 Jake Pineda MD, [facility] /EPI
[2019-03-15 11:16] VITALS: BP 114/70
--- NOTE | 2019-03-15 13:33 | NUR ---
DISCHARGE NOTE: SW reviewed chart and spoke with nursing and attending physician. Pt is medically stable for discharge. Psych did evaluate pt. SW discussed case with [facility] vocational rehabilitation technician, who states pt was evaluated earlier today and they can accept pt today. SW notified attending physician. Awaiting final discharge orders at this time. CARLITO is following to assist as needed with discharge planning.
[2019-03-15] MEDS ORDERED: IPRAT-ALBUT 0.5-3 ML INH (15:19)
[2019-03-15] MEDS ORDERED: VENTOLIN HFA 1818 GM INH (15:19)
[2019-03-15] MEDS ORDERED: MUPIROCIN22 GM TOP (15:19)
[2019-03-15] MEDS ORDERED: SEROQUEL 100 M100 MG PO (15:19)
[2019-03-15] MEDS ORDERED: PREDNISONE 10 M10 M1 PO (15:28)
[2019-03-15 15:48] VITALS: BP 106/74
--- NOTE | 2019-03-15 17:21 | NUR ---
Assumed care approx. 0700 this AM. Discharge orders and admission orders to rehab recieved. Orders discussed with youth liaison officer. Report called to CASSY Oseguera. Patient cooperative and ready for admission. Will take wound pics and take out right AC IV as it has gone bad. Pt will go to rehab with left FA IV. Telemetry dc'd. Diet changed to regular as patient refused mechanical altered ground diet; speech therapy saw patient then made the change. Patient finishing meal then will be taken up by wheelchair with staff this shift. Will continue to monitor.
== END 2019-03-15 18:00 | DRG 602 ==
LOC: ER 08:51 → 3W 12:59 → EROBS 12:59 → 3W 13:59
PROVIDERS: Emergency Medicine; Nurse Practitioner Acute Care; ADMIT Internal Medicine
DX: L03.818 Cellulitis of other sites (principal); N17.0 Acute kidney failure with tubular necrosis; J45.901 Unspecified asthma with (acute) exacerbation; E87.2 Acidosis; F15.921 Other stimulant use, unspecified with intoxication delirium; L03.312 Cellulitis of back [any part except buttock and flank]; L03.113 Cellulitis of right upper limb; L03.116 Cellulitis of left lower limb; L03.115 Cellulitis of right lower limb; K13.0 Diseases of lips; F90.9 Attention-deficit hyperactivity disorder, unspecified type; R22.9 Localized swelling, mass and lump, unspecified; D70.9 Neutropenia, unspecified; R26.0 Ataxic gait; T37.0X5A Adverse effect of sulfonamides, initial encounter; G43.909 Migraine, unspecified, not intractable, without status migrainosus; G44.89 Other headache syndrome; F15.90 Other stimulant use, unspecified, uncomplicated; M48.02 Spinal stenosis, cervical region; R13.10 Dysphagia, unspecified; G47.00 Insomnia, unspecified; Z88.1 Allergy status to other antibiotic agents; Z88.2 Allergy status to sulfonamides; Y92.89 Other specified places as the place of occurrence of the external cause; I69.328 Other speech and language deficits following cerebral infarction; Z79.2 Long term (current) use of antibiotics; Z85.72 Personal history of non-Hodgkin lymphomas; Z79.891 Long term (current) use of opiate analgesic; Z79.899 Other long term (current) drug therapy; Z88.5 Allergy status to narcotic agent; Z88.0 Allergy status to penicillin; Z88.8 Allergy status to other drugs, medicaments and biological substances; Z23 Encounter for immunization
CPT/HCPCS: 10879

== ENCOUNTER 2019-03-15 15:03 | Inpatient (IN) | payer OTHER ==
[~2019-03-15] VITALS: Ht 172.7 cm; Wt 66.1 kg
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
--- NOTE | ~2019-03-15 | PLAN ---
[facility] [place] [address] [place] [address] REHAB UNIT PLAN OF CARE Name: SMITHA STARK Room #: 510-P [facility] IN M.R.#: [id number] Admission: 03/15/19 Attend Phys: Silver Resendiz MD Discharge: 03/18/19 Date of : 67 Report #: [id number] THIS REPORT FOR: //name// CC: Silver Paulino DATE OF SERVICE: 03/18/2019 OVERALL PLAN OF CARE PLAN: The overall plan of care is based on the preadmission screen, post-admission physician evaluation and information garnered from therapy assessments. 1. Estimated length of stay is for discharge today. Followup can be worked out. 2. Medical prognosis is reasonably good. 3. Anticipated interventions includes the interdisciplinary acute inpatient rehabilitation program. 4. Anticipated functional outcomes are for the patient to be modified independent, which she already is doing without assistive device. She is also going up and down 12 stairs. 5. Discharge destination would be back to her apartment. Expected therapy by discipline is the PT, OT and speech. She is on a regular thin diet. Again, she is doing very well and the plan is to discharge her later today with medical clearance. By: [id number] Silver Resendiz MD /PMT
[2019-03-15] MEDS ORDERED: VENTOLIN HFA 1818 GM INH (15:19)
[2019-03-15] MEDS ORDERED: IPRAT-ALBUT 0.5-3 ML INH (15:19)
[2019-03-15] MEDS ORDERED: SEROQUEL 100 M100 MG PO (15:19)
[2019-03-15] MEDS ORDERED: MUPIROCIN22 GM TOP (15:19)
[2019-03-15] MEDS ORDERED: PREDNISONE 10 M10 M1 PO (15:28)
[2019-03-15 18:10] VITALS: BP 110/76
--- NOTE | 2019-03-16 04:05 | NUR ---
FROM ACUTE AT 1800 LAST EVENING. PATIENT IS FAIRLY STEADY ON HER FEET WALKING TO TOILET WITH STANDBY ASSIST, CALLS FOR THE SBA. SON HERE AT 2230 TO BRING CLOTHES FOR THERAPY, HOPES TO HAVE A SHOWER TODAY
[2019-03-16 05:54] LABS: HEMATOCRIT 37.4 % (37.0-47.0); MCH 30.4 pg (26.0-34.0); MCHC 32.1 g/dL (28.0-37.0); MCV 94.7 fL (80.0-100.0); RBC 3.95 mil/uL (4.20-5.00); RDW 16.4 % (10.5-14.5); WBC 18.8 thou/uL (4.0-11.0)
[2019-03-16 06:04] LABS: CALCIUM 9.3 mg/dL (8.5-10.1); CREATININE 0.9 mg/dL (0.6-1.0); POTASSIUM 3.5 mmol/L (3.5-5.1)
[2019-03-16 07:44] VITALS: BP 111/76
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
--- NOTE | 2019-03-16 14:53 | NUR ---
PATIENT PARTICIPATED IN COMMUNITY RE-INTEGRATION THIS DATE WITH OCCUPATIONAL THERAPY, REFER TO OT DOCUMENTATION.
--- NOTE | 2019-03-16 18:50 | NUR ---
ASSUMED CARE OF PT AT 0715. PT IS A&OX4 AND VITAL SIGNS ARE STABLE. PAIN IN HEAD AND BACK MANAGED WITH PO MEDICATIONS. PT REFUSED 2 TABS OF ORDERED PAIN MEDS, ORDERS CHANGED BY [facility]ER. PT EXPRESSED CONCERN ABOUT ORDERS FOR SEROQUEL, REFERRED CONCERN TO DR. SMITH WHO DISCUSSED MEDICAITON WITH PT, NO CHANGES TO SEROQUEL ORDER AT THIS TIME. DR. SMITH ORDERED CHANGES TO ADDERALL, PT REFUSED 1700 DOSE. IV IN LEFT FOREARM REMOVED PER ORDERS FROM [facility]. ELEVATED WBC, PROVIDER AWARE. MOD I IN ROOM W/O DEVICES. FALL PRECAUTIONS IN PLACE AND NURSING WILL CONTINUE TO MONITOR.
[2019-03-16 18:59] VITALS: BP 126/83
--- NOTE | 2019-03-16 23:18 | NUR ---
PT ASSESSMENT DONE AND VSS. MEDS GIVEN AND WELL TOLERATED. FALL PRECAUTIONS IN PLACE. SLEEPING WELL. HOURLY ROUNDING. CALL LIGHT IN REACH. WILL CONTINUE TO MONITOR.
[2019-03-17 09:00] VITALS: BP 146/76
[2019-03-17 19:45] VITALS: BP 125/83
--- NOTE | 2019-03-17 20:29 | NUR ---
ASSUMED CARE OF PT AT 0715 PT IS A&OX4 AND VITAL SIGNS ARE STABLE. PT REPORTS PAIN IN HEAD AND LOWER BACK. PAIN MANAGED WITH PO MEDICATIONS, PARTICIPATED IN SCHEDULED THERAPIES. PT HAS SKIN RASH WITH AREAS ON BACK, RIGHT ARM AND LEFT LEG THAT ARE OPEN. ANTIBIOTIC OINTMENT APPLIED TO RASH PER ORDERS AND COVERED WITH BOARDER GAUZE OR BANAGE IF OPEN. NO DRAINAGE NOTED AND SITES ARE HEALING. PT IS MOD I IN ROOM WITHOUT DEVICES. CALLS APPROPRIATELY FOR ASSISTANCE. FALL PRECAUTIONS IN PLACE AND NURSING WILL CONTINUE TO MONITOR.
--- NOTE | 2019-03-18 02:25 | NUR ---
PT ASSESSMENT COMPLETED AND VSS. MEDS GIVEN ORDERED AND WELL TOLERATED. ADAL IN ROOM. PRN PAIN MEDICATION HELPFUL. SLEEPING WELL. DENIES NEEDS. STEADY WHEN UP. WILL CONTINUE TO MONITOR FREQUENTLY.
--- NOTE | 2019-03-18 09:49 | NUR ---
cm notified by unpaid intern that pt will dc home today, no needs.
[2019-03-18] MEDS ORDERED: ZOFRAN 4 MG ORAL4 MG DISSOLVE (14:41)
[2019-03-18] MEDS ORDERED: ADDERALL 20 MG20 M1 PO (14:41)
[2019-03-18] MEDS ORDERED: SEROQUEL 100 M100 M1 PO (14:41)
--- NOTE | 2019-03-18 15:19 | NUR ---
Received awake on bed. Due medications given as prescribed, able to swallow meds w/o diffciulty. On room air. Vital signs stable. Visited by relatives today. No IV access noted. Independent with ADLs, up ad britney. Pt seen by Rehab HATCHERY MAN- discharge orders made, to call Dr Hameed' office to ask re: discharge instructions. Pt participating and tolerating therapies, very keen to go home today. No HH needs as per CM. Tried calling Dr Hameed' office 3x, no call back still- HATCHERY MAN updated. Dr Keys informed re: incomplete discharge instructions, no d/c home meds and prescription- Filed up by Dr Keys. Dr Valles called back re: discharge instructions, as per Dr Valles he said he is just a covering Dr and will have their nurse to call patient re: discharge instructions.
[2019-03-18 15:31] VITALS: BP 125/83
== END 2019-03-18 17:00 | disposition home or self-care (01) | DRG 552 ==
LOC: ENTRNSPT 03-18 16:08
PROVIDERS: Nurse Practitioner Family; ADMIT Physical Medicine & Rehabilitation
DX: M48.02 Spinal stenosis, cervical region (principal); J45.901 Unspecified asthma with (acute) exacerbation; N17.9 Acute kidney failure, unspecified; G62.9 Polyneuropathy, unspecified; R13.10 Dysphagia, unspecified; D70.9 Neutropenia, unspecified; L98.9 Disorder of the skin and subcutaneous tissue, unspecified; K12.1 Other forms of stomatitis; F90.9 Attention-deficit hyperactivity disorder, unspecified type; Z60.2 Problems related to living alone; R09.02 Hypoxemia; R47.81 Slurred speech; R26.0 Ataxic gait; R41.0 Disorientation, unspecified; G47.00 Insomnia, unspecified; G43.909 Migraine, unspecified, not intractable, without status migrainosus; Z88.0 Allergy status to penicillin; Z88.2 Allergy status to sulfonamides; Z88.8 Allergy status to other drugs, medicaments and biological substances; Z88.6 Allergy status to analgesic agent
CPT/HCPCS: 10112

== ENCOUNTER 2019-04-03 07:14 | Emergency (ER) | payer OTHER ==
[~2019-04-03] VITALS: Ht 172.7 cm; Wt 68.0 kg
[~2019-04-03 07:14] MED LIST changes: +ADDERALL 20 MG20 M1 PO; +IPRAT-ALBUT 0.5-3 ML INH; +MUPIROCIN22 GM TOP; +PREDNISONE 10 M10 M1 PO; +SEROQUEL 100 M100 M1 PO; +SEROQUEL 100 M100 MG PO; +ZOFRAN 4 MG ORAL4 MG DISSOLVE
[2019-04-03 07:53] LABS: HEMATOCRIT 37.5 % (37.0-47.0); HEMOGLOBIN 12.2 gm/dL (12.0-15.0); MCH 30.8 pg (26.0-34.0); MCHC 32.6 g/dL (28.0-37.0); MCV 94.5 fL (80.0-100.0); PLATELET COUNT 269 thou/uL (150-400); RBC 3.97 mil/uL (4.20-5.00); RDW 16.1 % (10.5-14.5); WBC 4.1 thou/uL (4.0-11.0)
[2019-04-03 08:11] LABS: URINE BILIRUBIN NEGATIVE (Negative); URINE BLOOD NEGATIVE (Negative); URINE CLARITY CLEAR; URINE COLOR YELLOW; URINE GLUCOSE-RANDOM* NEGATIVE (Negative); URINE KETONES NEGATIVE (Negative); URINE LEUKOCYTES-REFLEX NEGATIVE (Negative); URINE NITRITE-REFLEX NEGATIVE (Negative); URINE PROTEIN (DIPSTICK) NEGATIVE (Negative); URINE UROBILINOGEN 0.2 E.U./dl (0.2-1.0)
[2019-04-03 08:18] LABS: AMP/METHAMP POSITIVE (Negative); BARBITURATES Negative (Negative); BENZODIAZEPINES Negative (Negative); COCAINE Negative (Negative); METHADONE Negative (Negative); OPIATES Negative (Negative); PCP Negative (Negative)
[2019-04-03 08:26] LABS: ANION GAP 8 mmol/L (7-16); BUN 22 mg/dL (7-18); CALCIUM 9.1 mg/dL (8.5-10.1); CHLORIDE 108 mmol/L (98-107); CO2 28 mmol/L (21-32); CREATININE 1.1 mg/dL (0.6-1.0); GLUCOSE 90 mg/dL (74-106); SODIUM 144 mmol/L (136-145)
[2019-04-03 08:36] LABS: ALBUMIN 3.4 g/dL (3.4-5.0); SGOT 33 U/L (15-37); SGPT 51 U/L (30-65); TOTAL BILIRUBIN 0.3 mg/dL (<0.1-1.0); TOTAL PROTEIN 7.3 g/dL (6.4-8.2); TROPONIN-I <0.06 ng/mL (<0.06)
[2019-04-03 08:41] LABS: ABSOLUTE NEUTROPHILS 0.6 thou/uL (1.4-8.2)
[2019-04-03 08:42] LABS: ANISOCYTOSIS 1+; ATYPICAL LYMPHS 3 %
[2019-04-03] MEDS ORDERED: DOXYCYCLINE 10100 MG PO (09:23)
[2019-04-03 09:47] VITALS: BP 109/79
--- NOTE | 2019-04-03 11:48 | EKG ---
[place] [address] [address] [employer] [place] [address] ELECTROCARDIOGRAM REPORT Name: SMITHA STARK [facility] [id number] Admission: 04/03/19 Attend Phys: Discharge: 04/03/19 Date of : 67 Report #: [id number] THIS REPORT FOR: //name// [facility] ED Test Date: 2019-04-03 Test Time: 07:23:20 Pat Name: SMITHA STARK Department: Room: Gender: F Board Certified Orthodontist: TOI : 1965 Requested By: Viridiana Rico Order Number: [id number] MD: Jake Pineda Measurements Intervals [place] Rate: 82 P: 74 [place]: 174 QRS: 76 QRSD: 91 T: 61 QT: 385 QTc: 450 Interpretive Statements Sinus rhythm Anteroseptal infarct, age indeterminate Compared to ECG 03/14/2019 21:23:22 No significant changes Electronically Signed On 04-03-2019 11:47:24 HOME VISITOR by Jake Pineda [email or web address] <ELECTRONICALLY SIGNED> By: Jake Pineda MD, [facility] 04/03/19 1147 0723 2 Jake Pineda MD, FACC /EPI
== END 2019-04-03 09:48 | disposition home or self-care (01) ==
LOC: ER 07:14
PROVIDERS: Emergency Medicine
DX: L03.313 Cellulitis of chest wall (principal); F90.9 Attention-deficit hyperactivity disorder, unspecified type; Z85.828 Personal history of other malignant neoplasm of skin; Z88.0 Allergy status to penicillin; Z88.1 Allergy status to other antibiotic agents; Z88.6 Allergy status to analgesic agent

== ENCOUNTER 2019-04-05 21:16 | Emergency (ER) | payer OTHER ==
[~2019-04-05] VITALS: Ht 172.7 cm; Wt 68.0 kg
[~2019-04-05 21:16] MED LIST changes: +DOXYCYCLINE 10100 MG PO
[2019-04-06 00:22] VITALS: BP 111/81
--- NOTE | 2019-04-06 17:11 | EKG ---
[place] [address] [facility] [facility] [place] [address] ELECTROCARDIOGRAM REPORT Name: SMITHA STARK [facility] [id number] Admission: 04/05/19 Attend Phys: Discharge: 04/06/19 Date of : 67 Report #: [id number] THIS REPORT FOR: //name// [facility] [place] ED Test Date: 2019-04-05 Test Time: 21:25:17 Pat Name: SMITHA STARK Department: Room: Gender: F Adjunct Professor: [facility] 1965 Requested By: Trent Ladd Order Number: [id number] MD: Jake Pineda Measurements Intervals [place] Rate: 77 P: 68 [place]: 180 QRS: 71 QRSD: 97 T: 57 QT: 405 QTc: 459 Interpretive Statements Sinus rhythm Anteroseptal infarct, age indeterminate Compared to ECG 04/03/2019 07:23:20 No significant change was found Electronically Signed On 04-06-2019 17:10:45 RESP THER by Jake Pineda [email or web address] <ELECTRONICALLY SIGNED> By: Jake Pineda MD, [facility] 04/06/191709 24 24 Jake Pineda MD, [facility] /EPI
== END 2019-04-06 00:24 | disposition home or self-care (01) ==
LOC: ER 21:16
DX: R06.02 Shortness of breath (principal); F90.9 Attention-deficit hyperactivity disorder, unspecified type; Z85.828 Personal history of other malignant neoplasm of skin; Z88.2 Allergy status to sulfonamides; Z88.0 Allergy status to penicillin; Z88.8 Allergy status to other drugs, medicaments and biological substances

== ENCOUNTER 2019-07-01 16:17 | Emergency (ER) | payer OTHER ==
[~2019-07-01] VITALS: Ht 172.7 cm; Wt 63.5 kg
[2019-07-01 17:23] LABS: ABSOLUTE NEUTROPHILS 2.9 thou/uL (1.4-8.2); BASOPHILS 1.2 % (0.0-2.0); EOSINOPHILS 1.1 % (0.0-3.0); HEMATOCRIT 46.2 % (37.0-47.0); HEMOGLOBIN 15.2 gm/dL (12.0-15.0); LYMPHOCYTES 43.6 % (24.0-44.0); MCH 30.1 pg (26.0-34.0); MCHC 32.9 g/dL (28.0-37.0); MCV 91.6 fL (80.0-100.0); MONOCYTES 4.9 % (1.0-8.0); POLYS 49.2 % (36.0-66.0); RBC 5.04 mil/uL (4.20-5.00); RDW 15.8 % (10.5-14.5); WBC 5.9 thou/uL (4.0-11.0)
[2019-07-01 17:31] LABS: CALCIUM 9.2 mg/dL (8.5-10.1); CREATININE 1.1 mg/dL (0.6-1.0); POTASSIUM 4.4 mmol/L (3.5-5.1)
[2019-07-01 17:37] LABS: ALBUMIN 3.4 g/dL (3.4-5.0); TOTAL BILIRUBIN 0.6 mg/dL (<0.1-1.0); TOTAL PROTEIN 7.2 g/dL (6.4-8.2)
[2019-07-01 17:53] LABS: PLATELET COUNT 181 thou/uL (150-400); PLATELET ESTIMATE NORMAL
[2019-07-01 17:54] LABS: LARGE PLATELETS OCCASIONAL
[2019-07-01 18:35] LABS: URINE BILIRUBIN NEGATIVE (Negative); URINE BLOOD NEGATIVE (Negative); URINE CLARITY CLEAR; URINE COLOR YELLOW; URINE GLUCOSE-RANDOM* NEGATIVE (Negative); URINE KETONES NEGATIVE (Negative); URINE LEUKOCYTES-REFLEX NEGATIVE (Negative); URINE NITRITE-REFLEX NEGATIVE (Negative); URINE PROTEIN (DIPSTICK) TRACE (Negative); URINE UROBILINOGEN 0.2 E.U./dl (0.2-1.0)
[2019-07-01] MEDS ORDERED: ONDANSETRON HCL4 M2 PO (20:19)
[2019-07-01] MEDS ORDERED: PROMETH-CODEIN 65 ML PO (20:19)
[2019-07-01] MEDS ORDERED: VENTOLIN HFA 1818 GM INH (20:31)
[2019-07-01 20:54] VITALS: BP 116/77
== END 2019-07-01 20:40 | disposition home or self-care (01) ==
LOC: ER 16:17
PROVIDERS: Physician Assistant
DX: R05 Cough (principal); R10.31 Right lower quadrant pain; R68.89 Other general symptoms and signs; R06.02 Shortness of breath; R42 Dizziness and giddiness; R11.2 Nausea with vomiting, unspecified; Z88.2 Allergy status to sulfonamides; Z88.0 Allergy status to penicillin; Z88.1 Allergy status to other antibiotic agents; Z88.5 Allergy status to narcotic agent; Z85.828 Personal history of other malignant neoplasm of skin

== ENCOUNTER 2019-08-16 15:05 | Emergency (ER) | payer OTHER ==
[~2019-08-16] VITALS: Ht 172.7 cm; Wt 66.7 kg
[~2019-08-16 15:05] MED LIST changes: +ONDANSETRON HCL4 M2 PO; +PROMETH-CODEIN 65 ML PO
[2019-08-16] MEDS ORDERED: XTAMPZA ER18 MG PO (15:47)
[2019-08-16 16:45] LABS: URINE BLOOD NEGATIVE (Negative); URINE CLARITY CLEAR; URINE COLOR YELLOW; URINE GLUCOSE-RANDOM* NEGATIVE (Negative); URINE KETONES NEGATIVE (Negative); URINE LEUKOCYTES-REFLEX NEGATIVE (Negative); URINE NITRITE-REFLEX NEGATIVE (Negative); URINE PROTEIN (DIPSTICK) TRACE (Negative); URINE SPECIFIC GRAVITY >= 1.030 (1.005-1.035); URINE UROBILINOGEN 0.2 E.U./dl (0.2-1.0)
[2019-08-16 16:46] LABS: ICTOTEST (BILI CONFIRMATORY) Negative (Negative); URINE BILIRUBIN NEGATIVE (Negative)
[2019-08-16 17:05] VITALS: BP 109/69
== END 2019-08-16 17:05 | disposition home or self-care (01) ==
LOC: ER 15:05
PROVIDERS: Emergency Medicine
DX: R50.9 Fever, unspecified (principal); F90.9 Attention-deficit hyperactivity disorder, unspecified type; Z85.828 Personal history of other malignant neoplasm of skin; Z88.0 Allergy status to penicillin; Z88.1 Allergy status to other antibiotic agents; Z88.2 Allergy status to sulfonamides; Z88.6 Allergy status to analgesic agent

== ENCOUNTER 2020-06-25 16:01 | Emergency (ER) | payer OTHER ==
[~2020-06-25] VITALS: Ht 172.7 cm; Wt 69.4 kg
[~2020-06-25 16:01] MED LIST changes: +XTAMPZA ER18 MG PO
[2020-06-25 16:12] VITALS: BP 131/90
[2020-06-25] MEDS ORDERED: CLEOCIN HCL300 MG PO (16:32)
== END 2020-06-25 16:40 | disposition home or self-care (01) ==
LOC: ER 16:01
DX: L03.211 Cellulitis of face (principal); Z79.899 Other long term (current) drug therapy; Z88.0 Allergy status to penicillin; Z88.2 Allergy status to sulfonamides; Z88.5 Allergy status to narcotic agent; Z88.8 Allergy status to other drugs, medicaments and biological substances

== ENCOUNTER 2020-07-10 12:00 | Emergency (ER) | payer OTHER ==
[~2020-07-10] VITALS: Ht 172.7 cm; Wt 68.0 kg
[~2020-07-10 12:00] MED LIST changes: +CLEOCIN HCL300 MG PO
[2020-07-10] MEDS ORDERED: ERYTHROMYCIN E3.5 G2 OPHTHALMIC (14:12)
[2020-07-10 14:45] VITALS: BP 125/76
== END 2020-07-10 15:30 | disposition home or self-care (01) ==
LOC: ER 12:00
DX: S05.02XA Injury of conjunctiva and corneal abrasion without foreign body, left eye, initial encounter (principal); Z79.899 Other long term (current) drug therapy; Z88.0 Allergy status to penicillin; Z88.2 Allergy status to sulfonamides; Z88.5 Allergy status to narcotic agent; Z88.8 Allergy status to other drugs, medicaments and biological substances; X58.XXXA Exposure to other specified factors, initial encounter; Y93.89 Activity, other specified; Y92.89 Other specified places as the place of occurrence of the external cause; Y99.8 Other external cause status

== ENCOUNTER 2020-08-19 22:50 | Emergency (ER) | payer OTHER ==
[~2020-08-19] VITALS: Ht 172.7 cm; Wt 67.6 kg
[~2020-08-19 22:50] MED LIST changes: +ERYTHROMYCIN E3.5 G2 OPHTHALMIC
[2020-08-19 23:57] LABS: URINE BILIRUBIN NEGATIVE (Negative); URINE BLOOD NEGATIVE (Negative); URINE CLARITY CLEAR; URINE COLOR YELLOW; URINE GLUCOSE-RANDOM* NEGATIVE (Negative); URINE KETONES TRACE (Negative); URINE LEUKOCYTES-REFLEX TRACE (Negative); URINE NITRITE-REFLEX NEGATIVE (Negative); URINE PROTEIN (DIPSTICK) TRACE (Negative); URINE SPECIFIC GRAVITY 1.025 (1.005-1.035); URINE UROBILINOGEN 0.2 E.U./dl (0.2-1.0)
[2020-08-20] MEDS ORDERED: PERCOCET 10-321 EACH PO (00:04)
[2020-08-20] MEDS ORDERED: CEFUROXIME250 MG PO (00:04)
[2020-08-20] MEDS ORDERED: SUMATRIPTAN SU100 MG PO (00:04)
[2020-08-20] MEDS ORDERED: TRIAMCINOLONE A15 G3 TOP (00:05)
[2020-08-20] MEDS ORDERED: ACTICIN 5% CREA60 G1 TOP (00:05)
[2020-08-20] MEDS ORDERED: BUTALB-APAP-CA1 EACH PO (00:05)
[2020-08-20 00:06] LABS: AMP/METHAMP POSITIVE (Negative); BARBITURATES POSITIVE (Negative); BENZODIAZEPINES Negative (Negative); COCAINE Negative (Negative); METHADONE Negative (Negative); OPIATES Negative (Negative); PCP Negative (Negative)
[2020-08-20] MEDS ORDERED: ONDANSETRON HCL4 M3 PO (00:06)
[2020-08-20] MEDS ORDERED: DOXYCYCLINE 10100 M2 PO (00:06)
[2020-08-20 00:08] LABS: ABSOLUTE NEUTROPHILS 3.6 thou/uL (1.4-8.2); BASOPHILS 0.7 % (0.0-2.0); EOSINOPHILS 1.1 % (0.0-3.0); HEMATOCRIT 35.6 % (37.0-47.0); HEMOGLOBIN 11.6 gm/dL (12.0-15.0); LYMPHOCYTES 40.9 % (24.0-44.0); MCH 30.1 pg (26.0-34.0); MCHC 32.7 g/dL (28.0-37.0); MCV 92.1 fL (80.0-100.0); MONOCYTES 6.9 % (1.0-8.0); PLATELET COUNT 232 thou/uL (150-400); POLYS 50.4 % (36.0-66.0); RBC 3.86 mil/uL (4.20-5.00); RDW 14.9 % (10.5-14.5); WBC 7.1 thou/uL (4.0-11.0)
[2020-08-20 00:14] LABS: CALCIUM 8.7 mg/dL (8.5-10.1); CREATININE 1.3 mg/dL (0.6-1.0); POTASSIUM 3.7 mmol/L (3.5-5.1)
[2020-08-20 00:19] LABS: ALBUMIN 3.5 g/dL (3.4-5.0); TOTAL BILIRUBIN 0.4 mg/dL (0.2-1.0); TOTAL PROTEIN 7.2 g/dL (6.4-8.2)
[2020-08-20 03:00] VITALS: BP 116/76
== END 2020-08-20 04:00 | disposition home or self-care (01) ==
LOC: ER 22:50
PROVIDERS: Emergency Medicine Emergency Medical Services
DX: R06.02 Shortness of breath (principal); Z71.1 Person with feared health complaint in whom no diagnosis is made; R53.1 Weakness; Z88.1 Allergy status to other antibiotic agents; Z88.0 Allergy status to penicillin; Z88.5 Allergy status to narcotic agent; Z79.899 Other long term (current) drug therapy

== ENCOUNTER 2020-09-19 03:05 | Emergency (ER) | payer OTHER ==
[~2020-09-19] VITALS: Ht 172.7 cm; Wt 76.2 kg
[~2020-09-19 03:05] MED LIST changes: +ACTICIN 5% CREA60 G1 TOP; +BUTALB-APAP-CA1 EACH PO; +CEFUROXIME250 MG PO; +DOXYCYCLINE 10100 M2 PO; +ONDANSETRON HCL4 M3 PO; +SUMATRIPTAN SU100 MG PO; +TRIAMCINOLONE A15 G3 TOP
[2020-09-19 04:39] LABS: HEMATOCRIT 34.8 % (37.0-47.0); HEMOGLOBIN 11.3 gm/dL (12.0-15.0); MCH 30.3 pg (26.0-34.0); MCHC 32.6 g/dL (28.0-37.0); MCV 92.9 fL (80.0-100.0); PLATELET COUNT 181 thou/uL (150-400); RBC 3.74 mil/uL (4.20-5.00); RDW 15.3 % (10.5-14.5); WBC 4.7 thou/uL (4.0-11.0)
[2020-09-19 04:43] LABS: ANION GAP 11 mmol/L (7-16); BUN 18 mg/dL (7-18); CALCIUM 8.6 mg/dL (8.5-10.1); CHLORIDE 111 mmol/L (98-107); CO2 21 mmol/L (21-32); CREATININE 1.1 mg/dL (0.6-1.0); GLUCOSE 115 mg/dL (74-106); POTASSIUM 3.6 mmol/L (3.5-5.1); SODIUM 143 mmol/L (136-145)
[2020-09-19 04:54] LABS: ALBUMIN 3.3 g/dL (3.4-5.0); SGOT 22 U/L (15-37); SGPT 25 U/L (14-59); TOTAL BILIRUBIN 0.5 mg/dL (0.2-1.0); TOTAL PROTEIN 6.8 g/dL (6.4-8.2); TROPONIN-I <0.06 ng/mL (<0.06)
[2020-09-19 05:56] VITALS: BP 114/81
[2020-09-19 06:07] LABS: ABSOLUTE NEUTROPHILS 0.9 thou/uL (1.4-8.2)
[2020-09-19 06:08] LABS: PLATELET ESTIMATE NORMAL
--- NOTE | 2020-09-19 07:15 | EKG ---
[place] [address] [facility] [place] [address] ELECTROCARDIOGRAM REPORT Name: SMITHA STARK Room #: [facility]#: [id number] Admission: 09/19/20 Attend Phys: Discharge: 09/19/20 Date of : 67 Report #: [id number] [facility] ED Test Date: 2020-09-19 Test Time: 03:31:52 Pat Name: SMITHA STARK Department: Room: Gender: F Tax Record Clerk: jonel way : 1965 Requested By: Joshua De La Torre Order Number: [id number] MD: Tirso Mccallum Measurements Intervals [place] Rate: 81 P: 61 OR: 167 QRS: 49 QRSD: 92 T: 43 QT: 391 QTc: 454 Interpretive Statements Sinus rhythm Probable anteroseptal infarct, old Compared to ECG 04/05/2019 21:25:17 No significant changes Electronically Signed On 09-19-2020 7:15:16 CDT by Tirso Mccallum [email or web address] <ELECTRONICALLY SIGNED> By: Tirso Mccallum MD, [facility] 09/19/20 0715 033 0331 Tirso Mccallum MD, FACC /EPI
== END 2020-09-19 06:27 | disposition home or self-care (01) ==
LOC: ER 03:05
PROVIDERS: Emergency Medicine
DX: R07.89 Other chest pain (principal); R06.02 Shortness of breath; G43.909 Migraine, unspecified, not intractable, without status migrainosus; Z79.891 Long term (current) use of opiate analgesic; Z85.828 Personal history of other malignant neoplasm of skin; Z88.0 Allergy status to penicillin; Z88.5 Allergy status to narcotic agent; Z88.2 Allergy status to sulfonamides

== ENCOUNTER 2020-12-19 17:45 | Emergency (ER) | payer OTHER ==
[~2020-12-19] VITALS: Ht 172.7 cm; Wt 72.6 kg
[2020-12-19 18:01] VITALS: BP 127/85
== END 2020-12-19 18:47 | disposition home or self-care (01) ==
LOC: ER 17:45
DX: S01.111A Laceration without foreign body of right eyelid and periocular area, initial encounter (principal); Z79.51 Long term (current) use of inhaled steroids; Z79.891 Long term (current) use of opiate analgesic; Z79.899 Other long term (current) drug therapy; Z85.828 Personal history of other malignant neoplasm of skin; Z79.1 Long term (current) use of non-steroidal anti-inflammatories (NSAID); Z88.5 Allergy status to narcotic agent; Z88.0 Allergy status to penicillin; Z88.2 Allergy status to sulfonamides; Z88.8 Allergy status to other drugs, medicaments and biological substances; W22.03XA Walked into furniture, initial encounter; Y93.89 Activity, other specified; Y92.89 Other specified places as the place of occurrence of the external cause; Y99.8 Other external cause status

== ENCOUNTER 2021-01-01 19:07 | Emergency (ER) | payer OTHER ==
[~2021-01-01] VITALS: Ht 172.7 cm; Wt 65.8 kg
[2021-01-01 19:09] VITALS: BP 132/85
[2021-01-01] MEDS ORDERED: BACTRIM DS TAB1 EACH PO (19:51)
== END 2021-01-01 19:56 | disposition home or self-care (01) ==
LOC: ER 19:07
DX: R21 Rash and other nonspecific skin eruption (principal); F90.2 Attention-deficit hyperactivity disorder, combined type; Z79.899 Other long term (current) drug therapy; Z88.2 Allergy status to sulfonamides; Z88.0 Allergy status to penicillin; Z88.6 Allergy status to analgesic agent